=== PATIENT | female | born 1960 | race Caucasian/White ===

== ENCOUNTER 2017-08-27 03:38 | Emergency (ER) | payer OTHER ==
[~2017-08-27] VITALS: Ht 170.2 cm; Wt 74.8 kg
[2017-08-27 03:38] VITALS: BP 192/115
--- NOTE | 2017-08-27 03:50 | NUR ---
AFTER TRIAGE AND BED ASSIGNED; PT STATES "AM GONNA CALL MY FRIEND TO TAKE ME [place] [facility] [facility]". INFORMED BY PARAMEDICS "WE CANT TAKE YOU THERE". PT STATES "MY FRIEND WILL TAKE ME THERE". PT AGREES TI SIGN AMA FORM AND LEAVED AFTER. NOTIFIED
== END 2017-08-27 03:50 | disposition left against medical advice (07) ==
LOC: ER 03:42
DX: Z53.21 Procedure and treatment not carried out due to patient leaving prior to being seen by health care provider (principal)
CPT/HCPCS: A4606; Z7610